=== PATIENT | female | born 1985 ===

== ENCOUNTER 2017-03-04 11:38 | Emergency (ER) | payer BC ==
[2017-03-04 11:48] VITALS: TEMP 99.4
--- NOTE | 2017-03-04 12:20 | ED PDOC ---
Arrival/HPI - General Chief Complaint: Female Genitourinary Time Seen by Provider: 03/04/17 11:43 Historian: Patient - History of Present Illness Narrative History of Present Illness (Text): 03/04/17 11:57 A 32 year old female, known to be , last menstrual period noted on 01/09, who denies any significant past medical history, presents to the emergency department with vaginal bleeding, right sided stomach pain, and lower back pain. The patient reports she went to the bathroom this morning and she saw blood from her vagina, which resembled a menstrual cycle. She also admits to having intercourse earlier this morning. The patient denies any nausea, vomiting , fever, headaches, vision changes, chills, chest pain, hematuria, dysuria, or any other complaints at this time OBGYN: Dr. Berumen P:1 A:0 LMP: 01/09/17. Time/Duration: 1-3 hours Symptom Onset: Other Symptom Course: Other Activities at Onset: Light Context: Home Past Medical History - Provider Review Nursing Documentation Reviewed: Yes - Infectious Disease Hx of Infectious Diseases: None - Pulmonary Hx Asthma: Yes - Psychiatric Hx Substance Use: No - Surgical History Hx Section: Yes - Anesthesia Hx Anesthesia: Yes Hx Anesthesia Reactions: No Family/Social History - Physician Review Nursing Documentation Reviewed: Yes Family/Social History: No Known Family HX, Unknown Family HX Smoking Status: Former Smoker Hx Alcohol Use: No Hx Substance Use: No Allergies/Home Meds Allergies/Adverse Reactions: Allergies No Known Allergies Allergy (Verified 03/04/17 11:48) Home Medications: Home Meds Medication Instructions Recorded Confirmed No Known Home Med 03/04/17 03/04/17 Review of Systems - Physician Review All systems were reviewed & negative as marked: Yes - Review of Systems Constitutional: Fevers Respiratory: absent: SOB Cardiovascular: absent: Chest Pain Gastrointestinal: Abdominal Pain (right side). absent: Diarrhea, Nausea, Vomiting Genitourinary Female: Vaginal Bleeding. absent: Dysuria Musculoskeletal: Back Pain (lower back ) Physical Exam Vital Signs Reviewed: Yes Vital Signs Temp Pulse Resp BP Pulse Ox 03/04/17 11:44 99.4 F 82 16 111/73 97 Temperature: Afebrile Blood Pressure: Normal Pulse: Regular Respiratory Rate: Normal Appearance: Positive for: Well-Appearing, Non-Toxic, Comfortable Pain Distress: None Mental Status: Positive for: Alert and Oriented X 3 - Systems Exam Head: Present: Atraumatic, Normocephalic Pupils: Present: PERRL Conjunctiva: Present: Normal Mouth: Present: Moist Mucous Membranes Pharnyx: Present: Normal Neck: Present: Normal Range of Motion Respiratory/Chest: Present: Clear to Auscultation, Good Air Exchange. No: Respiratory Distress, Accessory Muscle Use Cardiovascular: Present: Regular Rate and Rhythm, Normal S1, S2. No: Murmurs Abdomen: Present: Normal Bowel Sounds. No: Tenderness, Distention, Peritoneal Signs Genitourinary/Pelvic Exam: Present: Normal External Genitalia, Vaginal Bleeding (Residual dark blood; no active bleeding), Adenexal Tenderness (R adnexal tenderness), Cervical Motion Tendernes (right side), Cervical os Closed, Other ( Right lower pelvic tenderness; supervisor tank cleaning: Garret Meredith) Back: Present: Normal Inspection Upper Extremity: Present: Normal Inspection. No: Cyanosis, Edema Lower Extremity: Present: Normal Inspection. No: Edema Neurological: Present: GCS=15, CN II-XII Intact, Speech Normal Skin: Present: Warm, Dry, Normal Color. No: Rashes Psychiatric: Present: Alert, Oriented x 3, Normal Insight, Normal Concentration Medical Decision Making ED Course and Treatment: 03/04/17 11:57 Impression: A 32 year old female, known to be with vaginal bleeding. Differential Diagnosis included but are not limited to: Ectopic vs. miscarriage vs. vaginal bleeding internally vs. UTI Plan: -- Labs -- Urinalysis -- test -- Transvaginal Ultrasound -- Reassess and disposition Progress Notes: 03/04/17 13:51 Tansvaginal Ultrasound Tire Repairman : Salvatore England MD PROCEDURE: First trimester ultrasound HISTORY:, vaginal bleeding COMPARISON:None available. FINDINGS: LMP: 01/05/2017 FINDINGS: Cardiac activity: Present Rate: 113 BPM Measurements: [place] rump length: 0.39 cm Gestational age based on CRL 6 weeks 1 day Gestational age based on gestational sac measurement 5 weeks 3 days Gestational age derived from LMP: 5 weeks 6 days LIDIA based on LMP: 10/15/2014 LIDIA based on biometry: 10/29/2014 Gestational concordance documented Yolk sac identified Uterus: Unremarkable. No Cervical abnormalities: Negative examination for cervical dilatation or effacement. Subchorionic hemorrhage: None ADNEXA: Right: 1.6 x 2.1 cm. Normal Doppler arterial waveform documented. Left: Obscured by overlying bowel gas. Non diagnostic assessment of Fluid in the cul-de-sac: None IMPRESSION: 5 weeks 6 days live intrauterine gestation. Unremarkable right ovary. Nonvisualization left adnexa. 03/04/17 14:17 Patient with noted history. Exam with closed cervical os and no active bleeding. Labs with Rh positive and beta-HCG of around 11,000 - Sono done shows IUP with FH at this time. Results discussed with patient and will be ok for d/c to f/u OBGYN this coming week and plan to repeat beta-HCG. - Lab Interpretations Lab Results: 03/04/17 12:15 03/04/17 12:56 Lab Results 03/04/17 13:20: Blood Type Confirm O POSITIVE 03/04/17 12:56: Sodium 136, Potassium 3.7, Chloride 104, Carbon Dioxide 21, Anion Gap 15, BUN 4 L, Creatinine 0.4 L, Est GFR ( Amer) > 60, Est GFR ( Non-Af Amer) > 60, Random Glucose 78, Calcium 9.4, Total Bilirubin 0.8, AST 31, ALT 35, Alkaline Phosphatase 75, Total Protein 7.1, Albumin 3.9, Globulin 3.2, Albumin/Globulin Ratio 1.2, Lipase 29 03/04/17 12:15: Beta HCG, Quant 81349.00 H 03/04/17 12:15: Urine Color Yellow, Urine Appearance Clear, Urine pH 6.0, Ur Specific [place] 1.010, Urine Protein Negative, Urine Glucose (UA) Negative, Urine Ketones Negative, Urine Blood Small H, Urine Nitrate Negative, Urine Bilirubin Negative, Urine Urobilinogen 0.2, Ur Leukocyte Esterase Negative, Urine RBC 0 - 2, Urine WBC 0 - 2, Ur Epithelial Cells 1 - 3, Urine Bacteria Few , Urine HCG, Qual Positive 03/04/17 12:15: PT 10.6, INR 0.98, APTT 27.8 03/04/17 12:15: WBC 11.6 H, RBC 5.03, Hgb 10.8 L, Hct 32.2 L, MCV 64.0 L, MCH 21.5 L, MCHC 33.5, RDW 17.0 H, Plt Count 383, MPV 9.0, Gran % 58.0, Lymph % ( Auto) 30.7, [place] % (Auto) 5.9, Eos % (Auto) 5.2 H, Baso % (Auto) 0.2, Gran # 6.72 H, Lymph # 3.6 H, [place] # 0.7 H, Eos # 0.6, Baso # 0.02 03/04/17 12:00: Blood Type O POSITIVE, Antibody Screen Negative, BBK History Checked No verified bt I have reviewed the lab results: Yes - RAD Interpretation Radiology Orders: 03/04/17 12:22 OB TRANSVAGINAL [US] Stat - PA / OPERATING THEATRE TECHNICIAN / Resident Statement MD/DO has reviewed & agrees with the documentation as recorded. - Scribe Statement The provider has reviewed the documentation as recorded by the Scribe Janet Meredith Provider Scribe Attestation: All medical record entries made by the Scribe were at my direction and personally dictated by me. I have reviewed the chart and agree that the record accurately reflects my personal performance of the history, physical exam, medical decision making, and the department course for this patient. I have also personally directed, reviewed, and agree with the discharge instructions and disposition. Disposition/Present on Arrival - Present on Arrival Any Indicators Present on Arrival: No History of DVT/PE: No History of Uncontrolled Diabetes: No Urinary Catheter: No History of Decub. Ulcer: No History Surgical Site Infection Following: None - Disposition Have Diagnosis and Disposition been Completed?: Yes Diagnosis: Threatened miscarriage Disposition: HOME/ ROUTINE Disposition Time: 14:00 Patient Plan: Discharge Condition: GOOD Discharge Instructions (ExitCare): Threatened Miscarriage (ED) Additional Instructions: Drink plenty of fluids. Tylenol as needed for pain. Continue your folic acid. Recommend pelvic rest (avoid intercourse for one week and full resolution of pain). Follow up with your OBGYN in 2-3 days and have your Beta-HCG rechecked ( to be done by your OBGYN). Return to the emergency department if any new concerning symptoms. Referrals: Mery Berumen MD [Medical Doctor] - Follow up with primary Forms: Harimata (Sinhala)
[2017-03-04 12:28] LABS: URINE BILIRUBIN NEGATIVE (NEGATIVE); URINE BLOOD SMALL (NEGATIVE); URINE GLUCOSE (UA) NEGATIVE (NEGATIVE); URINE LEUKOCYTE ESTERASE NEGATIVE Leu/uL (NEGATIVE); URINE NITRATE NEGATIVE (NEGATIVE); URINE PROTEIN NEGATIVE mg/dL (<30 mg/dL); URINE UROBILINOGEN 0.2 E.U./dL (<1 E.U./dL)
[2017-03-04 12:30] LABS: URINE APPEARANCE CLEAR (CLEAR); URINE COLOR YELLOW (YELLOW)
[2017-03-04 12:31] LABS: BASO # 0.02 K/mm3 (0.0-2.0); BASO % 0.2 % (0.0-3.0); EOS # 0.6 (0.0-0.7); EOS % 5.2 % (1.5-5.0); GRAN # 6.72 (1.4-6.5); HEMOGLOBIN 10.8 g/dL (12.0-16.0); LYMPH # 3.6 (1.2-3.4); LYMPH % 30.7 % (22.0-35.0); MEAN CORPUSCULAR HEMOGLOBIN 21.5 pg (25.0-35.0); MEAN CORPUSCULAR HGB CONC 33.5 g/dl (31.0-37.0); MONO # 0.7 (0.1-0.6); MONO % 5.9 % (1.0-6.0); PLATELET COUNT 383 10^3/uL (120.0-450.0); RBC 5.03 10^6/uL (3.5-6.1); WHITE BLOOD COUNT 11.6 10^3/ul (4.5-11.0)
[2017-03-04 12:32] LABS: HCG,QUALITATIVE URINE POSITIVE (NEGATIVE)
[2017-03-04 12:39] LABS: INR 0.98 (0.93-1.08); PARTIAL THROMBOPLASTIN TIME 27.8 Seconds (23.7-30.8); PROTHROMBIN TIME 10.6 Seconds (9.9-11.8)
[2017-03-04 12:46] LABS: URINE BACTERIA FEW (NEG); URINE RBC 0 - 2 /hpf (0-2); URINE WBC 0 - 2 /hpf (0-6)
[2017-03-04 13:35] LABS: ALB/GLOB RATIO 1.2 (1.1-1.8); ALBUMIN 3.9 g/dL (3.0-4.8); ALT/SGPT 35 U/L (7-56); AST/SGOT 31 U/L (15-39); BLOOD UREA NITROGEN 4 mg/dL (7-21); CALCIUM 9.4 mg/dL (8.4-10.5); GFR AFRICAN-AMERICAN > 60; GFR NON-AFRICAN AMERICAN > 60; LIPASE 29 U/L (23-300)
--- NOTE | 2017-03-04 13:46 | US ---
PROCEDURE: First trimester ultrasound HISTORY: , vaginal bleeding COMPARISON: None available. TECHNIQUE: Standard protocol for this study/examination. FINDINGS: LMP: 01/05/2017 Prior examinations from the current : None. TECHNIQUE: Real-time 2D imaging, duplex and color Doppler. FINDINGS: Cardiac activity: Present Rate: 113 BPM Measurements: [place] rump length: 0.39 cm Gestational age based on CRL 6 weeks 1 day Gestational age based on gestational sac measurement 5 weeks 3 days Gestational age derived from LMP: 5 weeks 6 days LIDIA based on LMP: 10/15/2014 LIDIA based on biometry: 10/29/2014 Gestational concordance documented Yolk sac identified Uterus: Unremarkable. No Cervical abnormalities: Negative examination for cervical dilatation or effacement. Subchorionic hemorrhage: None ADNEXA: Right: 1.6 x 2.1 cm. Normal Doppler arterial waveform documented. Left: Obscured by overlying bowel gas. Non diagnostic assessment of Fluid in the cul-de-sac: None IMPRESSION: 5 weeks 6 days live intrauterine gestation. Unremarkable right ovary. Nonvisualization left adnexa.
[2017-03-04 14:18] VITALS: BP 115/76; PULSE 78; RESP 19; O2SAT 100
== END 2017-03-04 14:13 | disposition home or self-care (01) ==
LOC: ED 11:38
DX: O20.0 Threatened abortion (principal); Z3A.01 Less than 8 weeks gestation of pregnancy